=== PATIENT | male | born 1965 | race Caucasian/White ===

== ENCOUNTER 2016-11-01 14:08 | Emergency (ER) | payer OTHER ==
[~2016-11-01] VITALS: Ht 180.3 cm; Wt 90.4 kg
[2016-11-01 14:35] LABS: BASOPHIL COUNT 0.2 K/uL (0-0.1); EOSINOPHIL (%) 0.8 % (0-5); EOSINOPHIL COUNT 0.1 K/uL (0-0.3); HEMATOCRIT 47.7 % (38.0-50.0); IMMATURE GRANULOCYTE (%) 0.3 % (0.0-0.7); INSTRUMENT ABS NEUTROPHIL CT 4.5 K/uL; LYMPHOCYTE COUNT 6.4 K/uL (1.0-2.8); MCH 30.9 PG (29.0-34.0); MEAN PLAT.VOLUME 9.3 uM^3 (9.0-12.4); MONOCYTE (%) 6.3 % (3-12); MONOCYTE COUNT 0.8 K/uL (0-0.8); NEUTROPHIL (%) 37.8 % (45-76); NEUTROPHIL COUNT 4.5 K/uL (1.8-6.4); PLATELET COUNT 479 K/uL (156-360); RBC DIS.WIDTH-CV 13.6 % (11.8-14.6); RBC DIS.WIDTH-SD 45.8 % (39-53); RED BLOOD COUNT 5.24 M/uL (4.00-5.50)
[2016-11-01 14:47] LABS: CHLORIDE 103 mEq/L (99-109); POTASSIUM 4.5 mEq/L (3.7-5.4); SODIUM 138 mEq/L (136-147)
[2016-11-01 14:49] LABS: GLUCOSE 366 mg/dL (70-99)
[2016-11-01 14:50] LABS: ANION GAP 19 MEQ/L (2-14)
[2016-11-01 14:51] LABS: TOTAL BILIRUBIN 0.3 mg/dL (0.0-1.0)
[2016-11-01 14:52] LABS: SERUM ETHYL ALCOHOL 247 mg/dL
[2016-11-01 14:53] LABS: ALKALINE PHOSPHATASE 93 IU/L (3-129)
[2016-11-01 14:55] LABS: UREA NITROGEN (BUN) 11 mg/dL (9-23)
[2016-11-01 14:56] LABS: SALICYLATE < 5.0 MG/DL (15-30)
[2016-11-01 14:58] LABS: TROP-I INTERPRETATION NEGATIVE; TROPONIN-I < 0.01 ng/mL (0.0-0.30)
[2016-11-01 15:05] LABS: GFR ESTIMATE (CALCULATED) > 59 mL/min/
[2016-11-01 16:35] LABS: AMPHETAMINE NEGATIVE (500 ng/mL); BARBITURATES NEGATIVE (200 ng/mL); BENZODIAZEPINES PRESUMPTIVE POSITIVE (150 ng/mL); COCAINE NEGATIVE (150 ng/mL); METHADONE NEGATIVE (200 ng/mL); METHAMPHETAMINE NEGATIVE (500 ng/mL); OPIATES (MORPHINE) NEGATIVE (100 ng/mL); OXYCODONE NEGATIVE (100 ng/mL); PHENCYCLIDINE NEGATIVE (25 ng/mL); PROPOXYPHENE NEGATIVE (300 ng/mL); THC CANNABINOIDS NEGATIVE (50 ng/mL); TRICYCLIC ANTIDEPRESSANTS NEGATIVE (300 ng/mL)
[2016-11-01 16:36] LABS: ADD MEDTOX COMMENT Y; INTERNAL CONTROLS VALID? YES
[2016-11-01 17:09] LABS: BENZODIAZEPINES QUANT VALUE 0 NG/ML
[2016-11-01 17:10] LABS: BENZODIAZEPINES, URINE SCREEN Negative (200 ng/mL)
[2016-11-01] MEDS ORDERED: LISINOPRIL10 MG PO ×2 (21:46→21:51)
[2016-11-01] MEDS ORDERED: TOPROL XL50 MG PO (21:46)
[2016-11-01] MEDS ORDERED: TEMAZEPAM30 MG PO (21:49)
[2016-11-01] MEDS ORDERED: LORAZEPAM1 MG PO (21:51)
[2016-11-01] MEDS ORDERED: METROPROLOL (21:51)
[2016-11-01] MEDS ORDERED: LORTAB 10-3251 EACH PO (21:52)
[2016-11-01] MEDS ORDERED: LEVEMIR100 UNIT/2 SC (21:52)
[2016-11-01 22:39] VITALS: BP 159/102
== END 2016-11-01 22:41 | disposition home or self-care (01) ==
LOC: EME 14:08
PROVIDERS: Emergency Medicine
DX: F10.20 Alcohol dependence, uncomplicated (principal); F33.2 Major depressive disorder, recurrent severe without psychotic features; I10 Essential (primary) hypertension; E11.65 Type 2 diabetes mellitus with hyperglycemia; Z04.6 Encounter for general psychiatric examination, requested by authority; Z91.128 Patient's intentional underdosing of medication regimen for other reason; T46.5X6A Underdosing of other antihypertensive drugs, initial encounter; Z79.4 Long term (current) use of insulin; Z88.1 Allergy status to other antibiotic agents
CPT/HCPCS: 71010; 80053; 84484; 84999; 85025; 90837; 93005; 99281; 99285; G0480; J1630; J2060